=== PATIENT | female | born 1990 | race Caucasian/White ===

== ENCOUNTER 2016-11-21 21:38 | Emergency (ER) | payer MEDICARE, MEDICAID ==
--- NOTE | ~2016-11-21 | ER ---
PATIENT'S NAME: CHIRAG RENTERIA [facility] AGE: 26 Y [address] ROOM: [place] [address] LOCATION: ED ADMIT DATE: 11/21/2016 ER/Outpatient Report DISCHARGE DATE: 11/21/2016 FAMILY PHYSICIAN: Physician, Unknown ATTENDING PHYSICIAN: Juan Lucero CHIEF COMPLAINT: Migraine. HISTORY OF PRESENT ILLNESS: The patient states that she had a migraine that started a few hours ago. She has been taking some topiramate to try to help with this and it has been significantly longer since her most recent migraine than it had been previously. She states that she has pain and pressure in her head that radiates down. It is throbbing in nature, sometimes stabbing. She does have some nausea and vomiting and some dizziness with some spotty vision. This symptom constellation is her standard headache presentation. There is nothing unusual or different about it today. She states that she responds to headache cocktail and just wants to go home and go to bed. She denies any fevers or chills or stiff neck associated with this. PAST MEDICAL HISTORY: Documented on the record and reviewed by me. SOCIAL HISTORY: Documented on the record and reviewed by me. MEDICATIONS: Documented on the record and reviewed by me. ALLERGIES: DOCUMENTED ON THE RECORD AND REVIEWED BY ME. REVIEW OF SYSTEMS: All systems reviewed and negative except as noted in the HPI. PHYSICAL EXAMINATION: VITAL SIGNS: Blood pressure 151/55, pulse 78, respiratory rate 16, temperature 98.8, SpO2 is 100% on room air. Pain is rated 8/10. GENERAL: Age appropriate female, sitting upright on the exam chair in a darkened room with sunglasses on. No apparent pain or distress, but obviously miserable. NEUROLOGIC: Awake and alert. GCS is 15. No focal deficits. No asymmetry. HEENT: Normocephalic, atraumatic. Eyes are PERRL. Oropharynx is clear. NECK: Supple. Full active and passive range of motion. No meningismus. PATIENT'S NAME: CHIRAG RENTERIA [facility] AGE: 26 Y [address] ROOM: [place] [address] LOCATION: [facility] ADMIT DATE: 11/21/2016 ER/Outpatient Report DISCHARGE DATE: 11/21/2016 FAMILY PHYSICIAN: Physician, Unknown ATTENDING PHYSICIAN: Juan Lucero CHEST/HEART: Regular rate and rhythm, with no murmurs. LUNGS: Clear to auscultation bilateral. No rhonchi, wheezes, or rales. ABDOMEN: Soft, nontender, and nondistended. No rebound or guarding. No masses. BACK: Normal to inspection and palpation. EXTREMITIES: Warm and well perfused. No deformities or edema. SKIN: Clean, dry, and intact. LABS AND X-RAYS: None. IMPRESSION: Migraine. EMERGENCY DEPARTMENT COURSE: The patient was seen and evaluated. No findings consistent with meningitis or subarachnoid hemorrhage. No imaging warranted at this time. The patient is given Reglan, Toradol, and Benadryl. She declined further evaluation and wanted to leave immediately after administration of medications. She did not want a test. All questions were answered and the patient was discharged in good condition. MD WILLIAM BOSTON/stacey /[id number] d: 11/22/16 0504 t: 11/26/16 1234, OUTPATIENT REPORT
== END 2016-11-21 22:06 | disposition disaster alternative care site (69) ==
LOC: GMED 21:38
DX: G43.909 Migraine, unspecified, not intractable, without status migrainosus (principal); F17.210 Nicotine dependence, cigarettes, uncomplicated; J45.909 Unspecified asthma, uncomplicated; Z88.0 Allergy status to penicillin; Z88.1 Allergy status to other antibiotic agents; Z79.899 Other long term (current) drug therapy
CPT/HCPCS: J1200; J1885; J2765